=== PATIENT | male | born 1965 | race Caucasian/White ===

== ENCOUNTER 2022-04-27 05:27 | Emergency (ER) | payer BC ==
[~2022-04-27] VITALS: Ht 167.6 cm; Wt 81.6 kg
[2022-04-27 05:43] VITALS: BP_SYST 118
--- NOTE | 2022-04-27 05:50 | NUR ---
PT HERE ACCOMPANIED BY FAMILY MEMBER C/O FLULIKE SYMPTOMS X4 DAYS AND HAD SYNCOPAL EPISODE AROOUND 0400 WHILE TRYING TO VOMIT AND LANDED ON FLOOR PER , PT HIT HIS HEAD WITH MILD C/O OF NECK PAIN. PMH:HTN,DM PT AAOX4, NO SOB NOTED AND NAD. PENDING MD ENRIQUEZ
--- NOTE | 2022-04-27 06:01 | NUR ---
ENDORSED TO TRICIA LARA TO ASSUME CARE.
--- NOTE | 2022-04-27 06:05 | NUR ---
ER at bedside examining patient.
[2022-04-27] MEDS ORDERED: NACL 0.9% 1,000 ML IV ONE ×2 (06:15→08:00)
--- NOTE | 2022-04-27 06:23 | NUR ---
COVID AND FLU SWAB GIVEN TO LAB AT 6:25
--- NOTE | 2022-04-27 06:24 | NUR ---
REPORT REC FROM MARCIA CLARKE. PT FROM HOME WITH SYNCOPAL EPISODE. REPORTS HEAD TRAUMA, HEAD AND NECK PAIN. PT REPORTS BEING SICK WITH FLU LIKE SYMPTOMS, COUGHING AND FEVERS FOR 3-4 DAYS, NONFEBRILE ON ARRIVAL. BOOGIE Katz MD MADE AWARE. PT A&O x4 AND FOLLOWING SIMPLE COMMANDS.
--- NOTE | 2022-04-27 06:28 | NUR ---
COVID AND FLU SAMPLES COLLECTED AND SENT TO LAB.
--- NOTE | 2022-04-27 06:37 | NUR ---
PT TO CT VIA [facility] ACCOMPANIED BY STAFF AND PARTNER.
--- NOTE | 2022-04-27 07:00 | NUR ---
ER at bedside examining patient at 0630.
--- NOTE | 2022-04-27 07:13 | NUR ---
RECEIVED PT IN BED #3 FROM HOME BIB BLS WITH CC OF WEAKNESS, SYNCOPE, HIGH BLOOD SUGAR. PT IS STABLE, NAD, VSS, AAOx3, AWAITING ADDITIONAL ASSESSMENTS AND DISPOSITION WITH PLAN OF CARE.
[2022-04-27 07:14] LABS: BASOPHILS % (AUTO) 0.5 % (0.0-2.0); EOSINOPHILS % (AUTO) 0.5 % (0.0-4.0); HEMATOCRIT 40.2 % (36-54); HEMOGLOBIN 14.1 g/dL (14.0-18.0); LYMPHOCYTES # (AUTO) 1.1 K/uL (1.0-5.5); LYMPHOCYTES % (AUTO) 22.4 % (20.5-51.5); MEAN CORPUSCULAR HEMOGLOBIN 29 pg (27-31); MEAN CORPUSCULAR HGB CONC 35 % (32-36); MEAN CORPUSCULAR VOLUME 82 fL (79.0-98.0); MONOCYTES # (AUTO) 0.7 K/uL (0.0-1.0); NEUTROPHILS # (AUTO) 3.1 K/uL (1.8-7.7); NEUTROPHILS % (AUTO) 62.6 % (40.0-70.0); PLATELET COUNT (AUTO) 150 K/uL (130-430); RED BLOOD CELL COUNT(AUTO) 4.92 MIL/uL (4.2-6.2); RED CELL DISTRIBUTION WIDTH 12.6 % (9.0-15.0)
--- NOTE | 2022-04-27 07:17 | NUR ---
REPORT GIVEN TO JEREMY CLARKE TO ASSUME ALL CARE. ALL QUESTIONS AND CONCERNS ADDRESSED AT THIS POINT.
[2022-04-27 07:26] LABS: ANION GAP 9 (5-15); CALCIUM 8.2 mg/dL (8.4-11.0); CHLORIDE 96 mmol/L (98-107); CREATININE 1.25 mg/dL (0.55-1.30); GLUCOSE 361 mg/dL (70-99); UREA NITROGEN, BLOOD 27 mg/dL (8-21)
[2022-04-27 07:35] LABS: ALANINE AMINOTRANSFERASE 28 U/L (12-78); ALBUMIN 3.1 g/dL (3.4-4.8); ASPARTATE AMINOTRANSFERASE 29 U/L (10-37); TOTAL BILIRUBIN 0.5 mg/dL (0.0-1.0)
[2022-04-27 07:37] LABS: GFR AFRICAN AMERICAN 77 mL/min (>90)
[2022-04-27 07:55] VITALS: BP_SYST 151
--- NOTE | 2022-04-27 08:00 | NUR ---
FIRST IV NS BOLUS COMPLETE
[2022-04-27] MEDS ORDERED: OSEL75CA PO (08:47)
[2022-04-27] MEDS ORDERED: ONDA-8 TL (08:47)
[2022-04-27] MEDS ORDERED: IBUP-1969 PO (08:47)
--- NOTE | 2022-04-27 09:00 | NUR ---
SECOND IV NS BOLUS COMPLETE
--- NOTE | 2022-04-27 09:12 | NUR ---
Patient given written and verbal discharge instructions and verbalizes understanding. ER MD discussed with patient the results and treatment provided. Patient in stable condition. ID arm band removed. IV catheter removed intact and dressing applied, no active bleeding. Rx of given. Patient educated on pain management and to follow up with PMD. Opportunity for questions provided and answered. Medication side effect fact sheet provided.
== END 2022-04-27 09:12 | disposition home or self-care (01) ==
LOC: SED 05:27
DX: S09.90XA Unspecified injury of head, initial encounter (principal); J10.1 Influenza due to other identified influenza virus with other respiratory manifestations; R55 Syncope and collapse; M54.2 Cervicalgia; R05.9 Cough, unspecified; R50.9 Fever, unspecified; R11.2 Nausea with vomiting, unspecified; Z79.899 Other long term (current) drug therapy; Z20.822 Contact with and (suspected) exposure to COVID-19; X58.XXXA Exposure to other specified factors, initial encounter; Y93.89 Activity, other specified; Y92.89 Other specified places as the place of occurrence of the external cause; Y99.8 Other external cause status
CPT/HCPCS: 99285; 70450; 96360; 71045; 96361; 87426; 80053; 82962; 85025; 84484; 36415; 93005; 72125; 76376; 87804 ×2; J7030